=== PATIENT | female | born 1995 | race Caucasian/White ===

== ENCOUNTER 2017-04-18 03:36 | Observation (INO) | payer BC ==
--- NOTE | 2017-04-18 03:39 | EDPHY ---
H & P HPI/ROS: HPI CHIEF COMPLAINT: Pelvic pain HISTORY OF PRESENT ILLNESS: This patient very pleasant 21-year-old female says no significant medical history, does have a history of ovarian cyst, remotely, presents emergency room with pelvic pain x3 days. Patient states she recently had her menstrual cycle. Last 4 days normal flow. She then developed after menstrual period ongoing pelvic pain for the past 3 days. Associated nausea vomiting. No fever. Denies urinary symptoms, denies vaginal discharge, denies flank pain. Denies fever. States the pain is crampy suprapubic and bilateral adnexal. Denies vaginal discharge or bleeding. Denies vaginal pain. She does have an IUD. She denies being . Denies recent intercourse, denies history of PID or pelvic infection. Denies STI. Past Medical History: No significant medical history Past Surgical History: Denies any abdominal surgery Social History: Denies daily use of drugs alcohol tobacco products Family History: Noncontributory ROS REVIEW OF SYSTEMS: A comprehensive 10 point review of systems is otherwise negative aside from elements mentioned in the history of present illness. Exam Constitutional triage nursing summary reviewed, vital signs reviewed, awake/ alert. Eyes normal conjunctivae and sclera, EOMI, PERRLA. HENT normal inspection, atraumatic, moist mucus membranes, no epistaxis, neck supple/ no meningismus, no raccoon eyes. Respiratory clear to auscultation bilaterally, normal breath sounds, no respiratory distress, no wheezing. Cardiovascular rate normal, regular rhythm, no murmur, no edema, distal pulses normal. Gastrointestinal soft, tender palpation suprapubically, and right and left adnexal, no rebound, no guarding, normal bowel sounds, no distension, no pulsatile mass. Genitourinary no CVA tenderness. Musculoskeletal no midline vertebral tenderness, full range of motion, no calf swelling, no tenderness of extremities, no meningismus, good pulses, neurovascularly intact. Skin pink, warm, & dry, no rash, skin atraumatic. Neurologic awake, alert and oriented x 3, AAOx3, moves all 4 extremities equally, motor intact, sensory intact, CN II-XII intact, normal cerebellar, normal vision, normal speech. Psychiatric normal mood/affect. Heme/Lymph/Immune no lymphadenopathy. Differential diagnosis includes but is not limited to and in no particular order : Ovarian cyst, ruptured ovarian cyst, ovarian torsion, PID, vaginitis, IUD migration, Bowel obstruction, appendicitis, gallbladder disease, diverticulitis , colitis, enteritis, perforated viscus, gastritis, GERD, esophagitis, urinary tract infection, pyelonephritis, kidney stones Medical Decision Making: Plan for this patient IV establishment, IV pain control with morphine IV Zofran for nausea, IV fluids. Check blood work, urinalysis dirty and clean catch, pelvic ultrasound. Pelvic exam. Re-evaluation: Pelvic Exam Performed: External vaginal exam unremarkable. Os closed. No CMT. No significant discharge no foul smell. No lesions. No significant tenderness with cervix motion. 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 Specimens taking. IUD in good position. Ultrasound of the pelvis The results of the study are unremarkable pelvic ultrasound IUD in good position. No ovarian cysts, no significant torsions, no significant free fluid.. I discussed the results of this study with the radiologist Dr. Jolley. 0505: Given that this patient's pelvic ultrasound, urinalysis unremarkable and pelvic exam unremarkable. Nothing to explain her lower pelvic pain she does have more right lower quadrant right lower pelvic pain than left side. Will need to rule out acute appendicitis given leukocytosis. Will proceed with CT abdomen pelvis with IV contrast. Patient is having ongoing pain initially improved with IV morphine will re-dosed. 0637AM: Patient's CT scan shows acute appendicitis with appendicolith. I consulted Dr. Gerber with surgery who will see and evaluate the patient. IV Invanz ordered. Patient made NPO. Source: Patient Constitutional: Initial Vital Signs Temperature (C) 37 C 04/18/17 03:46 Heart Rate 78 04/18/17 03:46 Respiratory Rate 16 04/18/17 03:46 Blood Pressure 125/76 H 04/18/17 03:46 O2 Sat (%) 98 04/18/17 03:46 O2 Delivery Mode Room Air Allergies/Adverse Reactions: No Known Allergies Allergy (Unverified 04/18/17 03:45) Medical Decision Making - Data Points Laboratory Results: Laboratory Results 04/18/17 04:00 04/18/17 04:00 04/18/17 04/18/17 04/18/17 05:00 04:45 04:45 WBC RBC Hgb Hct MCV MCH MCHC RDW Plt Count MPV Neut % (Auto) Lymph % (Auto) [place] % (Auto) Eos % (Auto) Baso % (Auto) Nucleat RBC Rel Count Absolute Neuts (auto) Absolute Lymphs (auto) Absolute Monos (auto) Absolute Eos (auto) Absolute Basos (auto) Absolute Nucleated RBC Immature Gran % Immature Gran # Sodium Potassium Chloride Carbon Dioxide Anion Gap BUN Creatinine Estimated GFR Glucose Calcium Total Bilirubin Conjugated Bilirubin Unconjugated Bilirubin AST ALT Alkaline Phosphatase Total Protein Albumin Lipase Beta HCG, Qual Urine Color YELLOW Urine Appearance CLEAR Urine pH 7.0 (5.0-7.5) Ur Specific [place] 1.012 (1.002-1.030) Urine Protein NEGATIVE (NEGATIVE) Urine Ketones NEGATIVE (NEGATIVE) Urine Blood 1+ H (NEGATIVE) Urine Nitrate NEGATIVE (NEGATIVE) Urine Bilirubin NEGATIVE (NEGATIVE) Urine Urobilinogen NEGATIVE EU EU (0.2-1.0) Ur Leukocyte Esterase NEGATIVE (NEGATIVE) Urine RBC 5-10 /hpf H /hpf (0-3) Urine WBC 1-3 /hpf /hpf (0-3) Ur Epithelial Cells TRACE /lpf /lpf (NONE-1+) Urine Mucus 1+ /lpf /lpf (NONE-1+) Urine Glucose NEGATIVE (NEGATIVE) Trichomonas (Wet Prep) NO WBC N.gonorrhoeae RNA (TMA) Pending 04/18/17 04/18/17 04/18/17 04:00 04:00 04:00 WBC 14.75 10^3/uL H 10^3/uL (3.80-9.50) RBC 4.17 10^6/uL L 10^6/uL (4.18-5.33) Hgb 13.6 g/dL g/dL (12.6-16.3) Hct 39.1 % % (38.0-47.0) MCV 93.8 fL fL (81.5-99.8) MCH 32.6 pg pg (27.9-34.1) MCHC 34.8 g/dL g/dL (32.4-36.7) RDW 11.4 % L % (11.5-15.2) Plt Count 249 10^3/uL 10^3/uL (150-400) MPV 9.4 fL fL (8.7-11.7) Neut % (Auto) 75.9 % H % (39.3-74.2) Lymph % (Auto) 12.5 % L % (15.0-45.0) [place] % (Auto) 10.0 % % (4.5-13.0) Eos % (Auto) 1.0 % % (0.6-7.6) Baso % (Auto) 0.3 % % (0.3-1.7) Nucleat RBC Rel Count 0.0 % % (0.0-0.2) Absolute Neuts (auto) 11.18 10^3/uL H 10^3/uL (1.70-6.50) Absolute Lymphs (auto) 1.84 10^3/uL 10^3/uL (1.00-3.00) Absolute Monos (auto) 1.48 10^3/uL H 10^3/uL (0.30-0.80) Absolute Eos (auto) 0.15 10^3/uL 10^3/uL (0.03-0.40) Absolute Basos (auto) 0.05 10^3/uL 10^3/uL (0.02-0.10) Absolute Nucleated RBC 0.00 10^3/uL 10^3/uL (0-0.01) Immature Gran % 0.3 % % (0.0-1.1) Immature Gran # 0.05 10^3/uL 10^3/uL (0.00-0.10) Sodium 140 mEq/L mEq/L (134-144) Potassium 3.8 mEq/L mEq/L (3.5-5.2) Chloride 105 mEq/L mEq/L (97-110) Carbon Dioxide 24 mEq/l mEq/l (22-31) Anion Gap 11 mEq/L mEq/L (8-16) BUN 8 mg/dL mg/dL (7-23) Creatinine 0.6 mg/dL mg/dL (0.6-1.0) Estimated GFR > 60 Glucose 105 mg/dL H mg/dL (70-100) Calcium 10.0 mg/dL mg/dL (8.5-10.4) Total Bilirubin 1.0 mg/dL mg/dL (0.1-1.4) Conjugated Bilirubin 0.3 mg/dL mg/dL (0.0-0.5) Unconjugated Bilirubin 0.7 mg/dL mg/dL (0.0-1.1) AST 17 IU/L IU/L (14-46) ALT 28 IU/L IU/L (9-52) Alkaline Phosphatase 69 IU/L IU/L (38-126) Total Protein 7.9 g/dL g/dL (6.3-8.2) Albumin 4.8 g/dL g/dL (3.5-5.0) Lipase 66.0 IU/L IU/L (23-300) Beta HCG, Qual NEGATIVE Urine Color Urine Appearance Urine pH Ur Specific [place] Urine Protein Urine Ketones Urine Blood Urine Nitrate Urine Bilirubin Urine Urobilinogen Ur Leukocyte Esterase Urine RBC Urine WBC Ur Epithelial Cells Urine Mucus Urine Glucose Trichomonas (Wet Prep) N.gonorrhoeae RNA (TMA) Medications Given: Discontinued Medications Sodium Chloride (Ns) 1,000 mls @ 0 mls/hr IV ONCE ONE PRN Reason: Wide Open Stop: 04/18/17 03:58 Last Admin: 04/18/17 04:05 Dose: 1,000 mls Morphine Sulfate (Morphine) 4 mg IVP EDNOW ONE Stop: 04/18/17 03:58 Last Admin: 04/18/17 04:05 Dose: 4 mg Morphine Sulfate (Morphine) 4 mg IVP EDNOW ONE Stop: 04/18/17 05:07 Last Admin: 04/18/17 05:30 Dose: 4 mg Ondansetron HCl (Zofran) 4 mg IVP EDNOW ONE Stop: 04/18/17 03:58 Last Admin: 04/18/17 04:05 Dose: 4 mg Departure - Departure Disposition: [facility] Acute Clinical Impression: Acute appendicitis Qualifiers: Acute appendicitis type: with localized peritonitis Qualified Code(s): K35.3 - Acute appendicitis with localized peritonitis Condition: Fair Referrals: NONE *PRIMARY CARE P,. [Primary Care Provider] - As per Instructions
[2017-04-18] MEDS ORDERED: ONDANSETRON 4 MG/2 ML VIAL ONE ×2 (03:55→07:49)
[2017-04-18] MEDS ORDERED: NS 1,000 ML IV ONE (03:57)
[2017-04-18] MEDS ORDERED: ONDANSETRON 4 MG/2 ML VIAL IVP ONE (03:57)
[2017-04-18 04:20] LABS: % IMMATURE GRANULYOCYTES 0.3 % (0.0-1.1); ABSOLUTE IMMATURE GRANULOCYTES 0.05 10^3/uL (0.00-0.10); ADD DIFF? NO; ADD MORPH? NO; ADD SCAN? NO; ATYPICAL LYMPHOCYTE FLAG 10 (0-99); FRAGMENT RBC FLAG 0 (0-99); HEMATOCRIT 39.1 % (38.0-47.0); HEMOGLOBIN 13.6 g/dL (12.6-16.3); LEFT SHIFT FLG 0 (0-99); LIPEMIA HEMOLYSIS FLAG 90 (0-99); MEAN CELL HEMOGLOBIN 32.6 pg (27.9-34.1); MEAN CELL HEMOGLOBIN CONCENTR. 34.8 g/dL (32.4-36.7); MEAN CELL VOLUME 93.8 fL (81.5-99.8); MEAN PLATELET VOLUME 9.4 fL (8.7-11.7); PLATELET CLUMPS FLAG 0 (0-99); PLATELET COUNT 249 10^3/uL (150-400); RED BLOOD CELL COUNT 4.17 10^6/uL (4.18-5.33); RED CELL DISTRIBUTION WIDTH 11.4 % (11.5-15.2)
[2017-04-18 04:32] LABS: ALANINE AMINOTRANSFERASE 28 IU/L (9-52); ALBUMIN 4.8 g/dL (3.5-5.0); ALKALINE PHOSPHATASE 69 IU/L (38-126); ANION GAP 11 mEq/L (8-16); ASPARTATE AMINOTRANSFERASE 17 IU/L (14-46); BILIRUBIN-CONJUGATED 0.3 mg/dL (0.0-0.5); BILIRUBIN-UNCONJUGATED 0.7 mg/dL (0.0-1.1); CARBON DIOXIDE 24 mEq/l (22-31); CHLORIDE 105 mEq/L (97-110); CREATININE 0.6 mg/dL (0.6-1.0); GLOMERULAR FILTRATION RATE > 60; GLUCOSE 105 mg/dL (70-100); POTASSIUM 3.8 mEq/L (3.5-5.2); SODIUM 140 mEq/L (134-144); TOTAL PROTEIN 7.9 g/dL (6.3-8.2)
[2017-04-18 04:57] LABS: COLOR YELLOW; LEUKOCYTE ESTERASE,URINE NEGATIVE (NEGATIVE); NITRITE,URINE NEGATIVE (NEGATIVE)
[2017-04-18 05:01] LABS: MUCUS 1+ /lpf (NONE-1+)
[2017-04-18] MEDS ORDERED: IOPAMIDOL (ISOVUE-300) 100 ML BTL ONE (05:11)
[2017-04-18] MEDS ORDERED: ERTAPENEM 1 GM in NS 100 ML IV ONE (06:25)
[2017-04-18] MEDS ORDERED: BUPIVACAINE 0.5% 30 ML SDV ONE (07:05)
[2017-04-18] MEDS ORDERED: ceFAZolin 1 GM/5 ML SYR ONE (07:06)
[2017-04-18] MEDS ORDERED: HEPARIN 1000 UNIT/1 ML MDV ONE (07:06)
--- NOTE | 2017-04-18 07:10 | PDGENHP ---
History and Physical History and Physical: 21 FEMALE WITH 3 DAYS OF PELVIC PAIN AND JUST FINISHING HER PERIOD/ NO DISCHARGE OR FEVER CT SHOWS APPE WITH FECOLITH/ ALSO HAS IUD ADMIT FOR LAP APPE PHX T&A/ ORTHO LEG SURGERIES FOR TENDON LENGHTENING/ MEDS O/ NKA/ ROS - HEENTOK/ CHEST CLEAR/ COR RR ABD SOFT TENDER RLQ WITH GUARDING AND REBOUND EXTR OK IMP: ACUTE APPE PLAN LAP APPE
[2017-04-18] MEDS ORDERED: KETOROLAC 30 MG/1 ML SDV IVP ONE (07:12)
[2017-04-18] MEDS ORDERED: HYDROmorphONE/DILAUDID 1 MG/ML SYR IVP PRN (07:12)
[2017-04-18] MEDS ORDERED: OXYCODONE/APAP 5/325 TAB PO PRN (07:12)
[2017-04-18] MEDS ORDERED: ONDANSETRON 4 MG/2 ML VIAL IVP PRN (07:12)
[2017-04-18] MEDS ORDERED: MIDAZOLAM 2 MG/2 ML VIAL ONE (07:15)
[2017-04-18] MEDS ORDERED: D5W 1/2 NS W/ 20 KCl/L 1,000 ML IV SCH (07:15)
[2017-04-18] MEDS ORDERED: PROPOFOL 200 MG/20 ML VIAL ONE (07:22)
[2017-04-18] MEDS ORDERED: fentaNYL 100 MCG/2 ML INJ ONE ×2 (07:22)
[2017-04-18] MEDS ORDERED: ROCURONIUM 50 MG/5 ML VIAL ONE (07:23)
--- NOTE | 2017-04-18 07:24 | GHP ---
[f rep st] PREOP HISTORY AND PHYSICAL HISTORY OF PRESENT ILLNESS: A 21-year-old female with 3 days of pelvic pain just finishing her period. Comes to the ER because of increasing pain. Ultrasound is unrevealing, but CT scan shows appendicitis with appendix down in the pelvis was an appendicolith. She also has an IUD in her uterus, but no evidence of ovarian issues. She is admitted for laparoscopic appendectomy. Risks and options have been fully discussed and she wishes to proceed. PAST MEDICAL HISTORY: Includes: ADD for which she used to take medicine, but does not now. PAST SURGICAL HISTORY: Includes: Bilateral calf tendon lengthening and a reconstruction of her right foot with stabilization. She has also had a tonsillectomy. ALLERGIES: None. MEDICATIONS: None. REVIEW OF SYSTEMS: Reveals no major other medical problems on full 10-point complete review of systems. PHYSICAL EXAMINATION: GENERAL: Reveals an alert, 21-year-old female in no acute distress. HEAD AND NECK: Reveal no icterus, adenopathy, or oral lesions. CHEST: Clear and symmetric. CARDIAC: Reveals a regular rhythm. ABDOMEN: Soft. She is tender in the right lower quadrant with rebound and guarding. EXTREMITIES: Benign with full pulses. IMPRESSION: Acute appendicitis. PLAN: Admit for laparoscopic appendectomy. Risks and options have been fully discussed and she wishes to proceed. /[id number]/MODL MTDD
[2017-04-18] MEDS ORDERED: SUCCINYLCHOLINE CHLORIDE*ANESTHESIA ONLY*200 MG/10 ML SYR IVP ONE (07:30)
[2017-04-18] MEDS ORDERED: NEOSTIGMINE METHYLSULFATE 5 MG/5 ML SYR ONE (08:03)
[2017-04-18] MEDS ORDERED: GLYCOPYRROLATE 0.2 MG/1 ML VIAL ONE ×2 (08:04→08:17)
--- NOTE | 2017-04-18 08:21 | POSTOPPROG ---
Post Op Note Date of Operation: 04/18/17 Surgeon: Amari Gerber Anesthesiologist: katharine Anesthesia: GET(General Endotracheal) Pre-op Diagnosis: acute appe Post-op Diagnosis: same Indication: acute appendicitis Procedure: lap appe Findings: acute, nonperfed appe Inf/Abcess present in the surg proc area at time of surgery?: Yes Depth: Organ Space EBL: Minimal Complications: 0 Specimen(s): appendix
[2017-04-18] MEDS ORDERED: KETOROLAC 30 MG/1 ML SDV ONE (08:29)
--- NOTE | 2017-04-18 08:56 | GOP ---
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 ANESTHESIOLOGIST: Wilbert Mcrae MD. PREOPERATIVE DIAGNOSIS: Acute appendicitis. POSTOPERATIVE DIAGNOSIS: Acute appendicitis. PROCEDURE PERFORMED: Laparoscopic appendectomy. FINDINGS: Patient has an acute suppurative nonperforated appendicitis. ESTIMATED BLOOD LOSS: Negligible. DESCRIPTION OF PROCEDURE: The patient was taken to the operating room and received satisfactory gen eral endotracheal anesthesia by Dr. Mcrae. She was placed in a supine position, prepped and draped in the usual sterile fashion. A periumbilical incision was made. A Veress needle was inserted. Pn eumoperitoneum was established. Trocar was introduced. Laparoscope introduced. Good visualization was obtained. Three other trocars were placed in the midline under direct vision. Two other troca rs were placed in the lower abdominal midline under direct vision. The appendix was identified. Th e cecum was rotated medially. The mesoappendix was divided with the Harmonic scalpel. The base of the appendix was skeletonized. The appendix was then divided with the Endo-JACQUE stapler and placed i n a specimen bag and extracted through the upper midline port site. Hemostasis was assured. The wo und was irrigated and suctioned clear. The trocars were removed under direct vision. Trocar sites were closed with 0 Vicryl for the fascia, 4-0 Monocryl subcuticular stitch for the skin. All layers were infiltrated with 0.5% Marcaine. COMPLICATIONS: No complications. DISPOSITION: Taken to the recovery room in good condition. /[id number]/MODL
[2017-04-18] MEDS ORDERED: ERTAPENEM 1 GM in NS 100 ML IV SCH (09:00)
[2017-04-18] MEDS ORDERED: KETOROLAC 15 MG/1 ML SDV IVP SCH (12:00)
[2017-04-18 13:04] VITALS: TEMP 98.1
[2017-04-18] MEDS ORDERED: HYDROCODONE/APAP 5/325 TAB PO PRN (16:17)
[2017-04-18 16:37] VITALS: PULSE 76; RESP 18
[2017-04-18 16:52] VITALS: BP 111/71; O2SAT 95
--- NOTE | 2017-04-18 18:21 | GDS ---
[f rep st] DISCHARGE SUMMARY DISCHARGE DIAGNOSES: Acute non-perforated appendicitis. 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 She had multiple imaging modalities performed including a pelvic ultrasound and an ab dominal CT which ultimately ended up showing non-perforated appendicitis. She was taken to the oper ating room that morning where she underwent an uneventful laparoscopic appendectomy. She was subseq uently transferred to the postanesthesia unit, and then to the general medical floor, where her pain was well controlled on oral medications. Her diet was advanced to a regular diet, which was well t olerated on day of discharge. Examination at the time of discharge showed that her incisions were c lean, dry and intact, and that her abdomen was appropriately tender, soft, and nondistended. She wa s subsequently discharged home. DISCHARGE MEDICATIONS: New medications were: 1. [place] as needed for pain. 2. Zofran as needed for nausea. DISPOSITION: Discharged to home. FOLLOWUP: She will follow up with Dr. Gerber in 10-14 days for a routine postoperative visit. /[id number]/MODL
[2017-04-19] MEDS ORDERED: ERTAPENEM 1 GM in NS 100 ML IV SCH (09:00)
== END 2017-04-18 17:45 | disposition home or self-care (01) ==
LOC: INTOOBSV 06:36 → F2W 09:22
PROVIDERS: ADMIT Surgery; ATTEND Surgery
PROC: 0DTJ4ZZ Resection of Appendix, Percutaneous Endoscopic Approach (ICD-10-PCS; principal; 2017-04-18 07:26)
DX: K35.80 Unspecified acute appendicitis (principal)
CPT/HCPCS: 44970; 74177; 76856; G0378; 96365; J0330; J1200; J1335; J1885; J2250; J2405; J2704; J2710; J3010; Q9967

== ENCOUNTER → 2017-04-21 | Outpatient (CLI) | payer BC | LOC: BMCIMAGING 10:02 | PROVIDERS: ATTEND Internal Medicine Rheumatology | DX: M25.561 Pain in right knee (principal); M25.562 Pain in left knee ==